=== PATIENT | female | born 1980 | race American Indian/Alaskan Native ===

== ENCOUNTER 2018-11-14 03:29 | Emergency (ER) | payer SELFPAY ==
[2018-11-14] MEDS ORDERED: IBUPROFEN PO ONE ×2 (04:30)
[2018-11-14] MEDS ORDERED: XYLOCAINE 1% MPF 5 mL INFILTRATI ONE (04:37)
[2018-11-14] MEDS ORDERED: XYLOCAINE 1% MPF 5 mL ONE (04:37)
--- NOTE | 2018-11-14 06:06 | Emergency Department Report ---
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 swelling left middle finger tip erythema pain aching, pain exacerbated by movement palpation, pain relieved by nothing pt denies fall injury or trauma ED Review of Systems ROS: Stated complaint: LEFT MIDDLE FINGER PAIN Other details as noted in HPI Constitutional: denies: chills, fever Eyes: denies: eye pain, eye discharge, vision change ENT: denies: ear pain, throat pain Respiratory: denies: cough, shortness of breath, wheezing Cardiovascular: denies: chest pain, palpitations Endocrine: no symptoms reported Gastrointestinal: denies: abdominal pain, nausea, diarrhea Genitourinary: denies: urgency, dysuria, discharge Musculoskeletal: joint swelling Skin: lesions (pain swelling left middle finger tip ). denies: rash Neurological: denies: headache, weakness, paresthesias Psychiatric: denies: anxiety, depression Hematological/Lymphatic: denies: easy bleeding, easy bruising ED Past Medical Hx - Past Medical History Previous Medical History?: No - Surgical History Past Surgical History?: No - Social History Smoking Status: Current Every Day Smoker Substance Use Type: None - Medications Home Medications: Home Medications Medication Instructions Recorded Confirmed Last Taken Type cephALEXin [Keflex] 500 mg PO Q8HR 10 Days #30 cap 11/14/18 Unknown Rx traMADol [Ultram] 50 mg PO Q6HR PRN #12 tablet 11/14/18 Unknown Rx Upper Extremity Exam - Exam General: Vital signs noted. No distress. Alert and acting appropriately. Head and Torso: No HEENT Abnormality, No Neck Tenderness, No Chest/Lungs Abnormality, No Abdominal Tenderness, No Back Tenderness Shoulder Exam: Yes Normal Range of Motion in Shoulder, No Shoulder Tenderness, No Clavicle Tenderness, No Shoulder Deformity, No AC Joint Tenderness Arm Exam: No Arm/Humerus Tenderness, No Arm Deformity Elbow: No Elbow Tenderness, No Normal Range of Motion in Elbow, No Elbow Deformity Forearm: No Forearm Tenderness, No Forearm Deformity, No Pain with Pronation, No Pain with Supination Wrist: Yes Normal ROM in Wrist, No Wrist Tenderness, No Wrist Deformity, No Snuffbox Tenderness, No Pain with Axial Thumb Compression Hand: Yes Hand Tenderness, Yes Digit Tenderness (pronychia finger tip ), Yes Normal ROM in Digit(s), No Hand Deformity, No Digit(s) Deformity, No Tendon Dysfunction CMS Exam: Yes Normal Distal Pulses, Yes Normal Capillary Refill, Yes Normal Distal Sensation, No Broken Skin - I & D Left Distal Finger Type of Procedure: Simple Site: left middle finger paronychia Blade Size: 11 I & D Procedure: betadine prep Progress: left middle finger paronychia site cleaned with betadine solution, anesthesia with 1% lidocaine x 1 cc via digital block , inicision with 11 blade scaple to base or nail bed moderate purulent drainage nail bed probed and irrigated all bleeding is controlled sterile dressing applied, pt tolerated procedure with minimal distress, pt tolerated procedure with minimal distress. Critical care attestation.: If time is entered above; I have spent that time in minutes in the direct care of this critically ill patient, excluding procedure time. ED Disposition Clinical Impression: Paronychia of finger of left hand Disposition: TO HOME OR SELFCARE Is pt being admited?: No Does the pt Need Aspirin: No Condition: Stable Instructions: Paronychia (ED) Prescriptions: cephALEXin [Keflex] 500 mg PO Q8HR 10 Days #30 cap traMADol [Ultram] 50 mg PO Q6HR PRN #12 tablet PRN Reason: Pain Referrals: JM ANGUIANO MD [Primary Care Provider] - 3-5 Days Forms: Work/School Release Form(ED) Time of Disposition: 06:12
[2018-11-14 06:40] VITALS: BP 104/65
== END 2018-11-14 06:25 | disposition home or self-care (01) ==
LOC: ED 03:29
DX: L03.012 Cellulitis of left finger (principal); F17.200 Nicotine dependence, unspecified, uncomplicated
CPT/HCPCS: 99282

== ENCOUNTER 2019-01-16 14:18 | Emergency (ER) | payer SELFPAY ==
--- NOTE | 2019-01-16 15:10 | Event Note ---
ED Screening Note Date of service: 01/16/19 Time: 15:09 ED Screening Note: 38 y o female presents with irritation to vaginal area denies vag d/c, dysuria, abd pain, vag bleed LMP- 01/13/19 This initial assessment/diagnostic orders/clinical plan/treatment(s) is/are subject to change based on patients health status, clinical progression and re- assessment by fellow clinical providers in the ED. Further treatment and workup at subsequent clinical providers discretion. Patient/guardian urged not to elope from the ED as their condition may be serious if not clinically assessed and managed. Initial orders include: ua, upt
[2019-01-16 15:11] VITALS: BP 98/50
[2019-01-16 16:17] LABS: HCG Qualitative,Urine Negative (Negative)
[2019-01-16 16:21] LABS: Bilirubin,Urine NEG (Negative); Blood,Urine NEG (Negative); Color,Urine Yellow (Yellow); Mucus,Urine FEW /HPF; Protein,Urine <15 mg/dL mg/dL (Negative); Urobilinogen,Urine < 2.0 mg/dL (<2.0)
--- NOTE | 2019-01-16 17:19 | Emergency Department Report ---
ED Female HPI - General Chief complaint: Urogenital-Female Stated complaint: VAGINAL IRRITATION Time Seen by Provider: 01/16/19 15:08 Source: patient Mode of arrival: Ambulatory Limitations: No Limitations - History of Present Illness Initial comments: Patient reports vaginal irritation with burning that started five days ago. Complaint: possible STD Onset/Timin -: days(s) Location: other (none) Radiation: non-radiating Severity: moderate Severity scale (0 -10): 5 Quality: burning Consistency: constant Improves with: none Worsens with: urination Are you Now?: No Last Menstrual Period: 12/11/18 EDC: 09/17/19 Associated Symptoms: dysuria. denies: vaginal discharge, vaginal bleeding, abdominal pain, nausea/vomiting, fever/chills, headaches, loss of appetite, hematuria, rash, seizure, shortness of breath, syncope, weakness - Related Data Sexually active: Yes Previous Rx's Medication Instructions Recorded Last Taken Type cephALEXin [Keflex] 500 mg PO Q8HR 10 Days #30 cap 11/14/18 Unknown Rx traMADol [Ultram] 50 mg PO Q6HR PRN #12 tablet 11/14/18 Unknown Rx Nitrofurantoin [place]/M-Cryst 100 mg PO Q12HR #14 capsule 01/16/19 Unknown Rx [Macrobid CAP] metroNIDAZOLE [Flagyl] 500 mg PO Q12HR #14 tab 01/16/19 Unknown Rx Allergies Allergy/AdvReac Type Severity Reaction Status Date / Time No Known Allergies Allergy Verified 11/14/18 03:35 ED Review of Systems ROS: Stated complaint: VAGINAL IRRITATION Other details as noted in HPI Constitutional: denies: chills, fever Eyes: denies: eye pain, eye discharge, vision change ENT: denies: ear pain, throat pain Respiratory: denies: cough, shortness of breath, wheezing Cardiovascular: denies: chest pain, palpitations Endocrine: no symptoms reported Gastrointestinal: denies: abdominal pain, nausea, vomiting, diarrhea Genitourinary: other (vaginal irritation). denies: urgency, dysuria, discharge Musculoskeletal: denies: back pain, joint swelling, arthralgia Skin: denies: rash, lesions Neurological: denies: headache, weakness, paresthesias Psychiatric: denies: anxiety, depression Hematological/Lymphatic: denies: easy bleeding, easy bruising ED Past Medical Hx - Past Medical History Previous Medical History?: No - Surgical History Past Surgical History?: No - Social History Smoking Status: Current Every Day Smoker Substance Use Type: None - Medications Home Medications: Home Medications Medication Instructions Recorded Confirmed Last Taken Type cephALEXin [Keflex] 500 mg PO Q8HR 10 Days #30 cap 11/14/18 Unknown Rx traMADol [Ultram] 50 mg PO Q6HR PRN #12 tablet 11/14/18 Unknown Rx Nitrofurantoin [place]/M-Cryst 100 mg PO Q12HR #14 capsule 01/16/19 Unknown Rx [Macrobid CAP] metroNIDAZOLE [Flagyl] 500 mg PO Q12HR #14 tab 01/16/19 Unknown Rx ED Physical Exam - General Limitations: No Limitations - Respiratory Respiratory exam: Present: normal lung sounds bilaterally. Absent: respiratory distress, wheezes, rales, rhonchi, stridor, chest wall tenderness, accessory muscle use, decreased breath sounds, prolonged expiratory - Cardiovascular Cardiovascular Exam: Present: regular rate, normal rhythm, normal heart sounds. Absent: bradycardia, tachycardia, irregular rhythm - GI/Abdominal GI/Abdominal exam: Present: soft, normal bowel sounds. Absent: distended, tenderness, guarding, rebound, rigid - External exam: Present: erythema, swelling. Absent: ecchymosis, bleeding Speculum exam: Present: vaginal discharge (moderate creamy). Absent: erythema, cervical discharge, vaginal bleeding, foreign body, tissue, laceration Bi-manual exam: Present: normal bi-manual exam. Absent: cervical motion tendernes, adnexal tenderness, adnexal mass, uterine enlargement, uterine tenderness - Extremities Exam Extremities exam: Present: normal inspection, full ROM, normal capillary refill. Absent: tenderness, pedal edema, joint swelling - Back Exam Back exam: Present: normal inspection, full ROM. Absent: tenderness, CVA tenderness (R), CVA tenderness (L), muscle spasm, paraspinal tenderness, vertebral tenderness - Neurological Exam Neurological exam: Present: alert, oriented X3, CN II-XII intact, normal gait - Psychiatric Psychiatric exam: Present: normal affect, normal mood - Skin Skin exam: Present: warm, dry, intact, normal color. Absent: rash ED Course Vital Signs 01/16/19 15:08 Temperature 98.4 F Pulse Rate 67 Respiratory 19 Rate Blood Pressure 98/50 [Left] O2 Sat by Pulse 99 Oximetry ED Medical Decision Making - Lab Data Lab Results 01/16/19 Range/Units Unknown Urine Color Yellow (Yellow) Urine Turbidity Slightly-cloudy (Clear) Urine pH 6.0 (5.0-7.0) Ur Specific [place] 1.020 (1.003-1.030) Urine Protein <15 mg/dl (Negative) mg/dL Urine Glucose (UA) Neg (Negative) mg/dL Urine Ketones Neg (Negative) mg/dL Urine Blood Neg (Negative) Urine Nitrite Neg (Negative) Ur Reducing Substances Not Reportable Urine Bilirubin Neg (Negative) Urine Ictotest Not Reportable Urine Urobilinogen < 2.0 (<2.0) mg/dL Ur Leukocyte Esterase Lg (Negative) Urine WBC (Auto) 9.0 H (0.0-6.0) /HPF Urine RBC (Auto) 2.0 (0.0-6.0) /HPF U Epithel Cells (Auto) 5.0 (0-13.0) /HPF Urine Mucus Few /HPF Urine HCG, Qual Negative (Negative) Microbiology 01/16/19 17:50 Cervix Wet Prep - Final Trichmoniasis seen > = 20% Clue cells seen No Yeast Vital Signs 01/16/19 15:08 Temperature 98.4 F Pulse Rate 67 Respiratory 19 Rate Blood Pressure 98/50 [Left] O2 Sat by Pulse 99 Oximetry - Medical Decision Making During the course of ED, pelvic exam and laboratory studies were ordered. Laboratory studies revealed positive for UTI, Trichomoniasis and clue cells. Patient was treated prophylactic in the ED for possible other STIs'. She was sent home with prescriptions for Macrobid and Flagyl, instructed to have sexual partner seek treatment at the local health department for STIs', she verbalized understanding - Differential Diagnosis Trichomoniasis, Bacterial Vaginosis, UTI, STI Critical care attestation.: If time is entered above; I have spent that time in minutes in the direct care of this critically ill patient, excluding procedure time. ED Disposition Clinical Impression: Trichomoniasis, Bacterial vaginosis Urinary tract infection Qualifiers: Urinary tract infection type: site unspecified Hematuria presence: without hematuria Qualified Code(s): N39.0 - Urinary tract infection, site not specified Disposition: TO HOME OR SELFCARE Is pt being admited?: No Does the pt Need Aspirin: No Condition: Stable Instructions: Bacterial Vaginosis (ED), Trichomoniasis (ED), Urinary Tract Infection in Women (ED) Additional Instructions: Take medication as directed. No drinking alcoholic beverages while taking antibiotics including 72 hours after completion of medications. Have sexual partner seek treatment at the local health department for sexual transmitted infections. Follow up with the selective referral given at discharge. Return back to the ED for worsening symptoms or concerns Prescriptions: metroNIDAZOLE [Flagyl] 500 mg PO Q12HR #14 tab Nitrofurantoin [place]/M-Cryst [Macrobid CAP] 100 mg PO Q12HR #14 capsule Referrals: PRIMARY CARE, [Primary Care Provider] - 3-5 Days [facility] [Outside] - 3-5 Days [facility] [Outside] - 3-5 Days Forms: STI Treatment and Prevention, Work/School Release Form(ED) Time of Disposition: 18:26
[2019-01-16] MEDS ORDERED: AZITHROMYCIN 1 GM ORAL PWDR PACKET PO ONE (18:17)
[2019-01-16] MEDS ORDERED: LIDOCAINE-MPF (1%) 10 MG/1 ML VIAL 5 ML INFILTRATI ONE (18:17)
== END 2019-01-16 18:54 | disposition home or self-care (01) ==
LOC: ED 14:18
DX: N76.0 Acute vaginitis (principal); N39.0 Urinary tract infection, site not specified; B96.89 Other specified bacterial agents as the cause of diseases classified elsewhere; F17.200 Nicotine dependence, unspecified, uncomplicated; Z79.899 Other long term (current) drug therapy
CPT/HCPCS: 81001; 81025; 87086; 87210; 87591; 96372; 99284; J0696

== ENCOUNTER 2019-01-27 16:29 | Emergency (ER) | payer SELFPAY ==
[2019-01-27 16:46] VITALS: BP 109/65
[2019-01-27 17:28] LABS: Bilirubin,Urine NEG (Negative); Blood,Urine NEG (Negative); Color,Urine Yellow (Yellow); Mucus,Urine FEW /HPF; Protein,Urine <15 mg/dL mg/dL (Negative); Urobilinogen,Urine < 2.0 mg/dL (<2.0)
--- NOTE | 2019-01-27 20:01 | Emergency Department Report ---
ED General Adult HPI - General Chief complaint: Medical Clearance Stated complaint: FOLLOW UP VISIT Time Seen by Provider: 01/27/19 19:26 Source: patient Mode of arrival: Ambulatory Limitations: No Limitations - History of Present Illness Initial comments: Pt is s 38 y/om aaf who tx'd for STD 7 days ago. Pt presents today for follow ua to ensure positive tx. pt denies vaginal discharge , complains of yeast which is normal reaction to abx for this patient. There are no other symptoms. Onset/Timin -: week(s) Severity scale (0 -10): 0 - Related Data Previous Rx's Medication Instructions Recorded Last Taken Type cephALEXin [Keflex] 500 mg PO Q8HR 10 Days #30 cap 11/14/18 Unknown Rx traMADol [Ultram] 50 mg PO Q6HR PRN #12 tablet 11/14/18 Unknown Rx Nitrofurantoin [place]/M-Cryst 100 mg PO Q12HR #14 capsule 01/16/19 Unknown Rx [Macrobid CAP] metroNIDAZOLE [Flagyl] 500 mg PO Q12HR #14 tab 01/16/19 Unknown Rx Fluconazole [Diflucan TAB] 150 mg PO ONCE #1 tablet 01/27/19 Unknown Rx Allergies Allergy/AdvReac Type Severity Reaction Status Date / Time No Known Allergies Allergy Verified 11/14/18 03:35 ED Review of Systems ROS: Stated complaint: FOLLOW UP VISIT Other details as noted in HPI Constitutional: denies: chills, fever Eyes: denies: eye pain, eye discharge, vision change ENT: denies: ear pain, throat pain Respiratory: denies: cough, shortness of breath, wheezing Cardiovascular: denies: chest pain, palpitations Endocrine: no symptoms reported Gastrointestinal: denies: abdominal pain, nausea, diarrhea Genitourinary: other (itching ) Musculoskeletal: denies: back pain, joint swelling, arthralgia Skin: denies: rash, lesions Neurological: denies: headache, weakness, paresthesias Psychiatric: denies: anxiety, depression Hematological/Lymphatic: denies: easy bleeding, easy bruising ED Past Medical Hx - Past Medical History Previous Medical History?: No - Surgical History Past Surgical History?: No - Social History Smoking Status: Current Every Day Smoker - Medications Home Medications: Home Medications Medication Instructions Recorded Confirmed Last Taken Type cephALEXin [Keflex] 500 mg PO Q8HR 10 Days #30 cap 11/14/18 Unknown Rx traMADol [Ultram] 50 mg PO Q6HR PRN #12 tablet 11/14/18 Unknown Rx Nitrofurantoin [place]/M-Cryst 100 mg PO Q12HR #14 capsule 01/16/19 Unknown Rx [Macrobid CAP] metroNIDAZOLE [Flagyl] 500 mg PO Q12HR #14 tab 01/16/19 Unknown Rx Fluconazole [Diflucan TAB] 150 mg PO ONCE #1 tablet 01/27/19 Unknown Rx ED Physical Exam - General Limitations: No Limitations General appearance: alert, in no apparent distress - Head Head exam: Present: atraumatic, normocephalic - Eye Eye exam: Present: normal appearance - ENT ENT exam: Present: mucous membranes moist - Neck Neck exam: Present: normal inspection - Respiratory Respiratory exam: Present: normal lung sounds bilaterally. Absent: respiratory distress - Cardiovascular Cardiovascular Exam: Present: regular rate, normal rhythm, normal heart sounds. Absent: systolic murmur, diastolic murmur, rubs, gallop - GI/Abdominal GI/Abdominal exam: Present: soft, normal bowel sounds. Absent: distended, tenderness, bruit, hernia - Rectal Rectal exam: Present: deferred - External exam: Present: other (exam deferred ) - Extremities Exam Extremities exam: Present: normal inspection - Back Exam Back exam: Present: normal inspection, full ROM. Absent: tenderness, CVA tenderness (R), CVA tenderness (L), rash noted - Neurological Exam Neurological exam: Present: alert, oriented X3 - Psychiatric Psychiatric exam: Present: normal affect, normal mood - Skin Skin exam: Present: warm, dry, intact, normal color. Absent: rash ED Course Vital Signs 01/27/19 16:42 Temperature 98.2 F Pulse Rate 79 Respiratory 16 Rate Blood Pressure 109/65 [Right] O2 Sat by Pulse 100 Oximetry ED Medical Decision Making - Lab Data Labs 01/27/19 Unknown Urine Color Yellow Urine Turbidity Slightly-cloudy Urine pH 5.0 Ur Specific [place] 1.023 Urine Protein <15 mg/dl Urine Glucose (UA) Neg Urine Ketones Neg Urine Blood Neg Urine Nitrite Neg Urine Bilirubin Neg Urine Urobilinogen < 2.0 Ur Leukocyte Esterase Tr Urine WBC (Auto) 4.0 Urine RBC (Auto) 2.0 U Epithel Cells (Auto) 16.0 H Urine Mucus Few - Medical Decision Making plan: will tx for yeast, follow up with pcp in 2-3 days. Pt verbalized agreement and understanding of discharge plan. Critical care attestation.: If time is entered above; I have spent that time in minutes in the direct care of this critically ill patient, excluding procedure time. ED Disposition Clinical Impression: Candidal vaginitis Disposition: DC-01 TO HOME OR SELFCARE Is pt being admited?: No Does the pt Need Aspirin: No Condition: Stable Prescriptions: Fluconazole [Diflucan TAB] 150 mg PO ONCE #1 tablet Referrals: [facility] [Outside] - 3-5 Days Forms: Work/School Release Form(ED)
== END 2019-01-27 20:17 | disposition home or self-care (01) ==
LOC: ED 16:29
DX: B37.3 Candidiasis of vulva and vagina (principal); Z79.899 Other long term (current) drug therapy; F17.200 Nicotine dependence, unspecified, uncomplicated
CPT/HCPCS: 81001; 99283

== ENCOUNTER 2019-11-22 09:01 | Emergency (ER) | payer SELFPAY | END 2019-11-22 09:05 | disposition left against medical advice (07) | LOC: ED 09:01 | DX: R51 Headache (principal); Z53.21 Procedure and treatment not carried out due to patient leaving prior to being seen by health care provider ==

== ENCOUNTER 2020-03-31 12:03 | Emergency (ER) | payer SELFPAY ==
[2020-03-31 12:25] VITALS: BP 122/74
--- NOTE | 2020-03-31 13:25 | Emergency Department Report ---
- General Chief Complaint: Upper Respiratory Infection Stated Complaint: BAD COUGH/SOB/NIGHT SWEATS Time Seen by Provider: 03/31/20 12:42 Source: patient Mode of arrival: Ambulatory Limitations: No Limitations - History of Present Illness Initial Comments: Patient is a 39-year-old female who presents emergency room complaints of cold symptoms that began a week ago. She has an associated cough with mucus production. She states that she is also been having chills, generalized body aches, headache, shortness of breath after coughing. She denies any fever, nausea, vomiting, diarrhea, chest pain, abdominal pain. She denies any known sick contacts. She denies any recent travel. She has a past medical history of HIV and reports that she is undetectable. She states that she is on her antivirals. She states that she goes to [facility]. She denies any allergies to medications. She is a current smoker. - Related Data Previous Rx's Medication Instructions Recorded Last Taken Type cephALEXin [Keflex] 500 mg PO Q8HR 10 Days #30 cap 11/14/18 Unknown Rx traMADoL [Ultram] 50 mg PO Q6HR PRN #12 tablet 11/14/18 Unknown Rx Nitrofurantoin [place]/M-Cryst 100 mg PO Q12HR #14 capsule 01/16/19 Unknown Rx [Macrobid CAP] metroNIDAZOLE [Flagyl] 500 mg PO Q12HR #14 tab 01/16/19 Unknown Rx Fluconazole (Nf) [Diflucan TAB] 150 mg PO ONCE #1 tablet 01/27/19 Unknown Rx Albuterol Sulfate [Proventil Hfa] 6.7 gm IH TID PRN #1 hfa.aer.ad 03/31/20 Unknown Rx Azithromycin [Zithromax TAB] 250 mg PO QDAY 5 Days #6 tablet 03/31/20 Unknown Rx Benzonatate [Tessalon Perles] 100 mg PO Q8HR PRN #10 capsule 03/31/20 Unknown Rx Potassium Chloride [K-Dur] 20 meq PO BID 1 Days #2 tab 03/31/20 Unknown Rx Prednisone [predniSONE 10 mg 10 mg PO .TAPER #1 tab.ds.pk 03/31/20 Unknown Rx (6-Day Pack, 21 Tabs)] Allergies Allergy/AdvReac Type Severity Reaction Status Date / Time No Known Allergies Allergy Verified 11/14/18 03:35 ED Review of Systems ROS: Stated complaint: BAD COUGH/SOB/NIGHT SWEATS Other details as noted in HPI Comment: All other systems reviewed and negative ED Past Medical Hx - Past Medical History Previous Medical History?: No - Surgical History Past Surgical History?: No - Social History Smoking Status: Current Some Day Smoker Substance Use Type: None - Medications Home Medications: Home Medications Medication Instructions Recorded Confirmed Last Taken Type cephALEXin [Keflex] 500 mg PO Q8HR 10 Days #30 cap 11/14/18 Unknown Rx traMADoL [Ultram] 50 mg PO Q6HR PRN #12 tablet 11/14/18 Unknown Rx Nitrofurantoin [place]/M-Cryst 100 mg PO Q12HR #14 capsule 01/16/19 Unknown Rx [Macrobid CAP] metroNIDAZOLE [Flagyl] 500 mg PO Q12HR #14 tab 01/16/19 Unknown Rx Fluconazole (Nf) [Diflucan TAB] 150 mg PO ONCE #1 tablet 01/27/19 Unknown Rx Albuterol Sulfate [Proventil Hfa] 6.7 gm IH TID PRN #1 hfa.aer.ad 03/31/20 Unknown Rx Azithromycin [Zithromax TAB] 250 mg PO QDAY 5 Days #6 tablet 03/31/20 Unknown Rx Benzonatate [Tessalon Perles] 100 mg PO Q8HR PRN #10 capsule 03/31/20 Unknown Rx Potassium Chloride [K-Dur] 20 meq PO BID 1 Days #2 tab 03/31/20 Unknown Rx Prednisone [predniSONE 10 mg 10 mg PO .TAPER #1 tab.ds.pk 03/31/20 Unknown Rx (6-Day Pack, 21 Tabs)] ED Physical Exam - General Limitations: No Limitations General appearance: alert, in no apparent distress - Head Head exam: Present: atraumatic, normocephalic - Eye Eye exam: Present: normal appearance - ENT ENT exam: Present: mucous membranes moist - Respiratory Respiratory exam: Present: rhonchi (left lower lobe). Absent: respiratory distress, wheezes, rales, stridor, chest wall tenderness, accessory muscle use, decreased breath sounds, prolonged expiratory - Cardiovascular Cardiovascular Exam: Present: regular rate, normal rhythm, normal heart sounds. Absent: systolic murmur, diastolic murmur, rubs, gallop - Neurological Exam Neurological exam: Present: alert, oriented X3 - Psychiatric Psychiatric exam: Present: normal affect, normal mood - Skin Skin exam: Present: warm, dry, intact ED Course Vital Signs 03/31/20 12:16 Temperature 98.9 F Pulse Rate 64 Respiratory 20 Rate Blood Pressure 122/74 O2 Sat by Pulse 97 Oximetry ED Medical Decision Making - Lab Data Result diagrams: 03/31/20 13:12 03/31/20 13:12 Lab Results 03/31/20 03/31/20 Range/Units 13:12 13:12 WBC 12.9 H (4.5-11.0) K/mm3 RBC 4.45 (3.65-5.03) M/mm3 Hgb 13.5 (10.1-14.3) gm/dl Hct 41.3 (30.3-42.9) % MCV 93 (79-97) fl MCH 30 (28-32) pg MCHC 33 (30-34) % RDW 13.7 (13.2-15.2) % Plt Count 306 (140-440) K/mm3 Lymph % (Auto) 18.1 (13.4-35.0) % [place] % (Auto) 6.6 (0.0-7.3) % Eos % (Auto) 1.0 (0.0-4.3) % Baso % (Auto) 0.1 (0.0-1.8) % Lymph # (Auto) 2.3 (1.2-5.4) K/mm3 [place] # (Auto) 0.9 H (0.0-0.8) K/mm3 Eos # (Auto) 0.1 (0.0-0.4) K/mm3 Baso # (Auto) 0.0 (0.0-0.1) K/mm3 Seg Neutrophils % 74.2 H (40.0-70.0) % Seg Neutrophils # 9.6 H (1.8-7.7) K/mm3 Sodium 136 L (137-145) mmol/L Potassium 3.4 L (3.6-5.0) mmol/L Chloride 100.2 (98-107) mmol/L Carbon Dioxide 26 (22-30) mmol/L Anion Gap 13 mmol/L BUN 6 L (7-17) mg/dL Creatinine 0.7 (0.6-1.2) mg/dL Estimated GFR > 60 ml/min BUN/Creatinine Ratio 9 % Glucose 79 (65-100) mg/dL Calcium 9.6 (8.4-10.2) mg/dL Total Bilirubin 1.10 (0.1-1.2) mg/dL AST 17 (5-40) units/L ALT 16 (7-56) units/L Alkaline Phosphatase 79 (35-129) units/L Total Protein 8.1 (6.3-8.2) g/dL Albumin 4.1 (3.9-5) g/dL Albumin/Globulin Ratio 1.0 % - Radiology Data Radiology results: report reviewed Ordering Physician: WESLY RUIZ Date of Service: 03/31/20 Procedure(s): XR chest routine 2V Accession Number(s): [id number] cc: WESLY RUIZ Fluoro Time In Minutes: CHEST 2 VIEWS INDICATION / CLINICAL INFORMATION: cough for a week. COMPARISON: None available. FINDINGS: SUPPORT DEVICES: None. HEART / MEDIASTINUM: No significant abnormality. LUNGS / PLEURA: No significant pulmonary or pleural abnormality. No pneumothorax. ADDITIONAL FINDINGS: No significant additional findings. IMPRESSION: No significant abnormality Signer Name: Win Funes MD FACR Signed: 03/31/2020 1:37 PM Workstation Name: [id number] Transcribed By: MS Dictated By: Win Funes MD Electronically Authenticated By: Win Funes MD Signed Date/Time: 03/31/201336 DD/ 36 TD/TT: - Medical Decision Making Patient is a 39-year-old female who presents emergency room complaints of cold symptoms that began a week ago. She has an associated cough with mucus production. She states that she is also been having chills, generalized body aches, headache, shortness of breath after coughing. She denies any fever, nausea, vomiting, diarrhea, chest pain, abdominal pain. She denies any known sick contacts. She denies any recent travel. She has a past medical history of HIV and reports that she is undetectable. She states that she is on her antivirals. She states that she goes to [facility]. She denies any allergies to medications. She is a current smoker. Labs with mildly elevated white count mild hypokalemia at 3.4. Patient given prescription for K-Dur. CXR: No significant abnormality. on exam: pt has left lower lobe rhonchi, no rales, no stridor, no wheezing, no respiratory distress, no accessory muscle use. symptoms likely related to acute bronchitis. Patient is presenting with the symptoms during COVID-19 pandemic, discussed COVID-19 with patient, discussed strict return precautions, discussed outpatient testing, discussed self quarantine. Patient given prescription for azithromycin, prednisone, albuterol inhaler, Tessalon Perles. Advised patient Please take medication as prescribed. Please increase your fluid intake over the next several days. May take Tylenol as needed for fever or body aches. May take vzkt-niy-cwsijgo cold symptom relief medication such as Mucinex or TheraFlu. Follow-up with a primary care doctor for reexamination. Return to emergency room immediately for any new or worsening symptoms including but not limited to difficulty breathing, shortness of breath, severe chest pain, unable to tolerate by mouth intake, etc. Please self quarantine for 2 weeks from the onset of your symptoms. Please do not go out in public. If you are around others at home please wear a mask. If you need to cough or sneeze please do so in a napkin and immediately throw it away and immediately wash your hands. Wash your hands frequently. Wipe everything down. Recommend for you to get COVID-19 testing, may have this done at primary care doctor, health department, [facility] testing center. - Differential Diagnosis PNA, URI, acute bronchitis, viral syndrome, COVID 19 Critical care attestation.: If time is entered above; I have spent that time in minutes in the direct care of this critically ill patient, excluding procedure time. ED Disposition Clinical Impression: Hypokalemia Acute bronchitis Qualifiers: Bronchitis organism: unspecified organism Qualified Code(s): J20.9 - Acute bronchitis, unspecified Disposition: DC-01 TO HOME OR SELFCARE Is pt being admited?: No Does the pt Need Aspirin: No Condition: Stable Instructions: Hypokalemia, Acute Bronchitis, Adult, [id number], Potassium Content of Foods, Acute Bronchitis (ED) Additional Instructions: Please take medication as prescribed. Please increase your fluid intake over the next several days. May take Tylenol as needed for fever or body aches. May take ghgo-cua-dmyjrun cold symptom relief medication such as Mucinex or TheraFlu. Follow-up with a primary care doctor for reexamination. Return to emergency room immediately for any new or worsening symptoms including but not limited to difficulty breathing, shortness of breath, severe chest pain, unable to tolerate by mouth intake, etc. Please self quarantine for 2 weeks from the onset of your symptoms. Please do not go out in public. If you are around others at home please wear a mask. If you need to cough or sneeze please do so in a napkin and immediately throw it away and immediately wash your hands. Wash your hands frequently. Wipe everything down. Recommend for you to get COVID-19 testing, may have this done at primary care doctor, health department, [facility] testing center. Prescriptions: Potassium Chloride [K-Dur] 20 meq PO BID 1 Days #2 tab Prednisone [predniSONE 10 mg (6-Day Pack, 21 Tabs)] 10 mg PO .TAPER #1 tab.ds.pk Albuterol Sulfate [Proventil Hfa] 6.7 gm IH TID PRN #1 hfa.aer.ad PRN Reason: Shortness Of Breath Benzonatate [Tessalon Perles] 100 mg PO Q8HR PRN #10 capsule PRN Reason: cough Azithromycin [Zithromax TAB] 250 mg PO QDAY 5 Days #6 tablet Referrals: PRIMARY CAREMD [Primary Care Provider] - 2-3 Days KRISTEN MAURICIO MD [Staff Physician] - 2-3 Days [facility] [Provider Group] - 2-3 Days Time of Disposition: 14:38 Print Language: BENGALI
--- NOTE | 2020-03-31 13:41 | XRay Report ---
CHEST 2 VIEWS INDICATION / CLINICAL INFORMATION: cough for a week. COMPARISON: None available. FINDINGS: SUPPORT DEVICES: None. HEART / MEDIASTINUM: No significant abnormality. LUNGS / PLEURA: No significant pulmonary or pleural abnormality. No pneumothorax. ADDITIONAL FINDINGS: No significant additional findings. IMPRESSION: No significant abnormality Signer Name: Win Funes MD FACR Signed: 03/31/2020 1:37 PM Workstation Name: [id number]
[2020-03-31 14:05] LABS: Basophils % (Auto) 0.1 % (0.0-1.8); Eosinophils # (Auto) 0.1 K/mm3 (0.0-0.4); Hematocrit 41.3 % (30.3-42.9); Hemoglobin 13.5 gm/dl (10.1-14.3); Lymphocytes # (Auto) 2.3 K/mm3 (1.2-5.4); Lymphocytes % (Auto) 18.1 % (13.4-35.0); Mean Corpuscular HGB Conc 33 % (30-34); Mean Corpuscular Volume 93 fl (79-97); Monocytes # (Auto) 0.9 K/mm3 (0.0-0.8); Monocytes % (Auto) 6.6 % (0.0-7.3); Platelet Count 306 K/mm3 (140-440); Red Blood Count 4.45 M/mm3 (3.65-5.03); Red Cell Distribution Width 13.7 % (13.2-15.2)
[2020-03-31 14:20] LABS: Alanine Aminotransferase 16 units/L (7-56); Albumin 4.1 g/dL (3.9-5); Blood Urea Nitrogen 6 mg/dL (7-17); Calcium 9.6 mg/dL (8.4-10.2); Hemolysis Index 11
[2020-03-31 14:30] LABS: BUN/Creatinine Ratio 9
== END 2020-03-31 15:38 | disposition home or self-care (01) ==
LOC: ED 12:03
DX: J20.9 Acute bronchitis, unspecified (principal); E87.6 Hypokalemia; F17.200 Nicotine dependence, unspecified, uncomplicated; Z79.899 Other long term (current) drug therapy
CPT/HCPCS: 36415; 71046; 80053; 85025

== ENCOUNTER 2020-05-07 09:13 | Emergency (ER) | payer SELFPAY ==
[2020-05-07 09:18] VITALS: BP 112/72
[2020-05-07] MEDS ORDERED: BALANCED SALT IRRIG (BSS) OPHTH SOLN 15 ML ONE (09:18)
[2020-05-07] MEDS ORDERED: TETRACAINE 0.5% OPHTH SOLN 4ML ONE (09:18)
[2020-05-07] MEDS ORDERED: TETRACAINE 0.5% OPHTH SOLN 4ML OU ONE (09:18)
[2020-05-07] MEDS ORDERED: FLUORESCEIN 1 MG STRIP OP ONE ×2 (09:18)
--- NOTE | 2020-05-07 09:20 | Emergency Department Report ---
Eye Injury/Foreign Body - HPI Duration: 2 Days Eye Location: Right Severity: Mild Tetanus Status: Up to Date Eye Symptoms: Eye Pain: No, Blurred Vision: No, Eye Redness: Yes, Grinding/Hammering Metal: No, Used Eye Protection: No, Contact Lens Use: No, Recalls Injury: No, Photophobia: No Other History: 39 yo woke up with swelling and fb sensation in r eye. She has had recent uri. no known trauma. no contacts ED Review of Systems ROS: Stated complaint: EYE PAIN Other details as noted in HPI Comment: All other systems reviewed and negative ED Past Medical Hx - Past Medical History Previous Medical History?: No - Surgical History Past Surgical History?: No - Family History Family history: no significant - Social History Smoking Status: Never Smoker Substance Use Type: None Eye Injury Exam - Exam General: Vital signs noted. No distress. Alert and acting appropriately. va no change no eye pain globe intact eoms intact mild periorb swelling r eye mild conjunctival redness fluros. stain p 2 gtt tetracaine abrasion noted across cornea no fb ED Course Vital Signs 05/07/20 09:16 Temperature 98.1 F Pulse Rate 86 Respiratory 20 Rate Blood Pressure 112/72 O2 Sat by Pulse 96 Oximetry ED Medical Decision Making - Medical Decision Making Vital Signs 05/07/20 09:16 Temperature 98.1 F Pulse Rate 86 Respiratory 20 Rate Blood Pressure 112/72 O2 Sat by Pulse 96 Oximetry pos abrasion on exam dc home with dc poc- polymyxin eye drops and eye MD follow up. Pt verbalizes understanding of dc poc - Differential Diagnosis ro fb/abrasion Critical care attestation.: If time is entered above; I have spent that time in minutes in the direct care of this critically ill patient, excluding procedure time. ED Disposition Clinical Impression: Corneal abrasion, right Disposition: DC-01 TO HOME OR SELFCARE Is pt being admited?: No Does the pt Need Aspirin: No Condition: Stable Instructions: Corneal Abrasion, Tkis-al-Imip Prescriptions: Ciprofloxacin HCl/Dexameth [Ciprodex Otic Suspension] 2 drop OD BID #7.5 ml Referrals: KRISTEN MAURICIO MD [Staff Physician] - 3-5 Days DANIEL CHRISTY MD [Staff Physician] - 3-5 Days Time of Disposition: 09:19
== END 2020-05-07 09:50 | disposition home or self-care (01) ==
LOC: ED 09:13
DX: S05.01XA Injury of conjunctiva and corneal abrasion without foreign body, right eye, initial encounter (principal); W45.8XXA Other foreign body or object entering through skin, initial encounter; Y93.89 Activity, other specified; Y92.89 Other specified places as the place of occurrence of the external cause; Y99.8 Other external cause status
CPT/HCPCS: 99282